=== PATIENT | female | born 1970 | race Caucasian/White ===

== ENCOUNTER 2022-12-19 07:51 | Outpatient (CLI) | payer BC | END 2022-12-19 07:52 | disposition home or self-care (01) | LOC: BICMAMMO 07:51 | PROVIDERS: ATTEND Physician Assistant | DX: Z12.31 Encounter for screening mammogram for malignant neoplasm of breast (principal); N64.89 Other specified disorders of breast; Z85.820 Personal history of malignant melanoma of skin | CPT/HCPCS: 77063; 77067 ==

== ENCOUNTER 2025-03-07 15:14 | Emergency (ER) | payer BC | END 2025-03-07 17:22 | disposition home or self-care (01) | LOC: ERS 15:14 | DX: M79.661 Pain in right lower leg (principal); Z03.89 Encounter for observation for other suspected diseases and conditions ruled out ==

== ENCOUNTER 2025-03-23 18:30 | Outpatient (CLI) | payer BC | END 2025-03-23 18:31 | disposition home or self-care (01) | LOC: RAD 18:30 | PROVIDERS: ATTEND Student in an Organized Health Care Education/Training Program | DX: S99.921A Unspecified injury of right foot, initial encounter (principal) ==